=== PATIENT | female | born 1960 | race Caucasian/White ===

== ENCOUNTER 2021-01-17 17:06 | Inpatient (IN) | payer MEDICAID ==
[~2021-01-17] VITALS: Ht 154.9 cm; Wt 64.9 kg
[2021-01-17] MEDS ORDERED: ASPIRIN 325MG EC TABLET PO ONE (18:00)
[2021-01-17] MEDS ORDERED: SODIUM CHLORIDE 0.9% 500 ML IV ONE (18:00)
[2021-01-17 18:15] LABS: BASOPHILS % 0.7 % (0.0-2.0); EOSINOPHILS % 3.6 % (0.0-5.0); HEMATOCRIT. 36.3 % (36.0-48.0); LYMPHOCYTES % 15.8 % (20.0-50.0); MEAN CORPUSCULAR HEMOGLOBIN 31.9 pg (28.0-32.0); MEAN CORPUSCULAR VOLUME 96.5 fL (81.0-99.0); MEAN PLATELET VOLUME 7.8 fl (7.4-10.4); MONOCYTES % 6.1 % (2.0-8.0); NEUTROPHILS % 73.8 % (40.0-76.0); PLATELET 352 x1000/uL (130-400); RED BLOOD CELL COUNT 3.76 mill/uL (4.2-5.4); RED CELL DISTRIBUTION WIDTH 13.7 % (11.6-14.6)
[2021-01-17 18:20] LABS: CHLORIDE 112 mEq/L (98-107)
[2021-01-17 22:35] VITALS: BP 145/110
[2021-01-18] MEDS ORDERED: METF-874 MT (02:03)
[2021-01-18] MEDS ORDERED: METO-385 MT (02:03)
[2021-01-18] MEDS ORDERED: LISI10TA26 MT (03:31)
[2021-01-18] MEDS ORDERED: OMEG100017 MT (03:31)
[2021-01-18] MEDS ORDERED: ASPI-986 MT (03:31)
[2021-01-18] MEDS ORDERED: SPIR50TA5 MT (03:31)
[2021-01-18] MEDS ORDERED: POTA20TA82 MT (03:31)
[2021-01-18] MEDS ORDERED: LEVVL SQ (03:31)
[2021-01-18] MEDS ORDERED: GABA-532 MT (03:31)
[2021-01-18 04:00] VITALS: BP 132/63
[2021-01-18] MEDS ORDERED: ASPI-1406 MT (05:27)
[2021-01-18] MEDS ORDERED: ACETAMINOPHEN 325MG TABLET PO NR (05:30)
[2021-01-18] MEDS ORDERED: HYDROCODONE/ACETAMINOPHEN 5/325MG TABLET PO PRN (05:30)
[2021-01-18] MEDS ORDERED: NALOXONE HCL 0.4MG/ML VIAL IV PRN (05:30)
[2021-01-18] MEDS ORDERED: ACETAMINOPHEN 325MG TABLET PO PRN (06:00)
[2021-01-18] MEDS: METFORMIN HCL 500MG TABLET PO SCH ×2 (06:36→17:17)
[2021-01-18] MEDS ORDERED: DEXTROSE 50% WATER 50ML SYRINGE IV PRN ×2 (07:30)
[2021-01-18] MEDS: INSULIN LISPRO 100 UNITS/ML SUBCUT SCH ×4 (07:40→20:22)
[2021-01-18 07:54] VITALS: BP 121/58
[2021-01-18] MEDS: LISINOPRIL 10MG TABLET PO SCH (08:14)
[2021-01-18] MEDS: GABAPENTIN 300MG CAPSULE PO SCH ×2 (08:15→17:17)
[2021-01-18] MEDS ORDERED: METOPROLOL TARTRATE 50MG TABLET PO SCH (09:00)
[2021-01-18 10:36] LABS: HEMATOCRIT 35.8 % (36.0-48.0); HEMOGLOBIN 11.5 g/dL (12.0-16.0); MEAN CORPUSCULAR HEMOGLOBIN 31.1 pg (28.0-32.0); MEAN CORPUSCULAR VOLUME 96.8 fL (81.0-99.0); PLATELET 313 x1000/uL (130-400); RED CELL DISTRIBUTION WIDTH 13.6 % (11.6-14.6)
[2021-01-18 10:49] LABS: CHLORIDE 110 mEq/L (98-107)
[2021-01-18 10:56] LABS: LDL CHOLESTEROL 63 mg/dL (5-100)
[2021-01-18 10:58] LABS: HDL CHOLESTEROL 31 mg/dL (40-59)
[2021-01-18 12:00] VITALS: BP 118/68
[2021-01-18] MEDS: BLOOD SUGAR DIAGNOSTIC STRIP TEST SCH ×3 (12:10→20:22)
[2021-01-18] MEDS ORDERED: BLOOD SUGAR DIAGNOSTIC STRIP TEST SCH (12:10)
[2021-01-18] MEDS ORDERED: REGADENOSON 0.4 MG/5 ML IV ONE (12:45)
[2021-01-18] MEDS: ASPIRIN 81MG EC TABLET PO SCH (13:09)
[2021-01-18 16:00] VITALS: BP 109/58
[2021-01-18 20:00] VITALS: BP 101/56
[2021-01-18] MEDS ORDERED: ATORVASTATIN CALCIUM 10MG TABLET PO SCH (21:00)
[2021-01-19] VITALS: BP 104/57
[2021-01-19 04:00] VITALS: BP 102/56
[2021-01-19] MEDS: INSULIN LISPRO 100 UNITS/ML SUBCUT SCH (06:17)
[2021-01-19] MEDS: BLOOD SUGAR DIAGNOSTIC STRIP TEST SCH (06:17)
[2021-01-19 06:46] LABS: EOSINOPHILS % 4.5 % (0.0-5.0); HEMATOCRIT. 32.7 % (36.0-48.0); HEMOGLOBIN. 11.1 g/dL (12.0-16.0); LYMPHOCYTES % 37.8 % (20.0-50.0); MEAN CORPUSCULAR HEMOGLOBIN 32.4 pg (28.0-32.0); MEAN CORPUSCULAR VOLUME 95.8 fL (81.0-99.0); MONOCYTES % 7.4 % (2.0-8.0); NEUTROPHILS % 49.3 % (40.0-76.0); PLATELET 294 x1000/uL (130-400); RED BLOOD CELL COUNT 3.41 mill/uL (4.2-5.4); RED CELL DISTRIBUTION WIDTH 13.6 % (11.6-14.6)
[2021-01-19 07:09] LABS: CHLORIDE 109 mEq/L (98-107)
[2021-01-19 08:00] VITALS: BP 108/63
[2021-01-19] MEDS ORDERED: METOPROLOL SUCCINATE 50MG ER TABLET PO SCH (09:00)
[2021-01-19] MEDS: METFORMIN HCL 500MG TABLET PO SCH (12:14)
[2021-01-19] MEDS: GABAPENTIN 300MG CAPSULE PO SCH (12:14)
[2021-01-19] MEDS: ASPIRIN 81MG EC TABLET PO SCH (12:15)
[2021-01-19] MEDS: LISINOPRIL 10MG TABLET PO SCH (12:15)
== END 2021-01-19 13:45 | disposition home or self-care (01) | DRG 203 ==
LOC: ER 17:06 → 8WST 20:43 → ENRESERV 21:47 → CANBEDREQ 23:00
PROVIDERS: ADMIT Internal Medicine; ATTEND Internal Medicine
DX: M94.0 Chondrocostal junction syndrome [Tietze] (principal); E87.8 Other disorders of electrolyte and fluid balance, not elsewhere classified; E11.9 Type 2 diabetes mellitus without complications; I10 Essential (primary) hypertension; E78.00 Pure hypercholesterolemia, unspecified; E78.5 Hyperlipidemia, unspecified; E87.5 Hyperkalemia; R00.1 Bradycardia, unspecified; Z79.4 Long term (current) use of insulin; Z79.811 Long term (current) use of aromatase inhibitors; Z79.84 Long term (current) use of oral hypoglycemic drugs; Z79.899 Other long term (current) drug therapy
CPT/HCPCS: 36415; 71045; 78452; 80048; 80061; 82962; 83036; 84484; 85025; 85027; 93005; 93017; 93306; 99285; A9500; J2785; J7040